=== PATIENT | male | born 1975 | race Caucasian/White ===

== ENCOUNTER 2019-12-11 21:43 | Emergency (ER) | payer OTHER ==
[~2019-12-11] VITALS: Ht 170.2 cm; Wt 72.6 kg
--- NOTE | 2019-12-11 21:43 | NUR ---
PT [facility] BLS. TAKEN TO BED 5
[2019-12-11 21:48] VITALS: BP 117/82
--- NOTE | 2019-12-11 21:48 | NUR ---
Dr. Mercedes examining patient.
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
[2019-12-11] MEDS ORDERED: IBUPROFEN 600 MG TAB PO ONE (21:55)
[2019-12-11] MEDS ORDERED: OLANZapine 5 MG TAB PO SCH (21:55)
[2019-12-11] MEDS ORDERED: OLANZapine 2.5 MG TAB ONE (22:03)
--- NOTE | 2019-12-11 22:03 | NUR ---
X-Ray at bedside.
[2019-12-11 22:52] VITALS: BP 115/80
--- NOTE | 2019-12-11 22:52 | NUR ---
Patient discharged with v/s stable. Written and verbal after care instructions about musculoskeletal pain given and explained. Patient verbalized understanding. Ambulatory with steady gait. All questions addressed prior to discharge. Advised to follow up with PMD.
--- NOTE | 2019-12-11 22:55 | NUR ---
[facility] CALLED FOR PT TO DESIRED LOCATION FOR DISCHARGE, WILL WAIT IN LOBBY FOR TAXI
== END 2019-12-11 22:52 | disposition home or self-care (01) ==
LOC: MED 21:43
DX: S89.92XA Unspecified injury of left lower leg, initial encounter (principal); E11.9 Type 2 diabetes mellitus without complications; R56.9 Unspecified convulsions; Z88.6 Allergy status to analgesic agent; Y08.89XA Assault by other specified means, initial encounter; Y93.89 Activity, other specified; Y92.89 Other specified places as the place of occurrence of the external cause; Y99.8 Other external cause status
CPT/HCPCS: 73552; 99283; Q0092